=== PATIENT | female | born 1955 ===

== ENCOUNTER 2022-01-07 10:54 | Day surgery (SDC) | payer MEDICARE ==
[~2022-01-07 10:54] MED LIST: Metoclopramide 10 MG/2 ML SDV IV PRN
[2022-01-07] MEDS: Sodium Chloride 0.9% 1,000 ML IV SCH (12:55)
[2022-01-07] MEDS ORDERED: Glycopyrrolate 0.2 MG/ML 2 ML SDV ONE (13:15)
[2022-01-07 13:40] VITALS: PULSE 69
[2022-01-07 13:44] VITALS: BP 127/77
== END 2022-01-07 14:10 | disposition home or self-care (01) ==
LOC: LB.SDS 10:54
PROVIDERS: ATTEND Surgery
DX: Z12.11 Encounter for screening for malignant neoplasm of colon (principal); I10 Essential (primary) hypertension; E78.5 Hyperlipidemia, unspecified; Z86.010 Personal history of colon polyps
CPT/HCPCS: G0105; J2704; J3490; J7030